=== PATIENT | female | born 2000 | race Two or more races ===

== ENCOUNTER 2020-09-24 12:30 | Emergency (ER) | payer OTHER ==
--- NOTE | 2020-09-24 13:15 | ED Physician Documentation ---
PD HPI HEAD INJURY - Stated complaint Stated Complaint: GLF/HEAD INJURY - Chief complaint Chief Complaint: Trauma Hd/Nk - History obtained from History obtained from: Patient, Family - History of Present Illness Mechanism of head injury: Fell Where head injury occurred: Home Timing - onset: How many days ago (3) Location of injury: Front Quality of pain: Pain Associated symptoms: Neck pain, Other (facial bruising and headache). No: LOC, AMS, Amnesia, Nausea / vomiting, Paresthesias, Seizures, Ear drainage, Nasal drainage Symptoms improve with: Rest Symptoms worsen with: Palpation Contributing factors: No: Anticoagulated Similar symptoms before: Diagnosis (concussion) Recently seen: Not recently seen - Additional information Additional information: Previously well 20-year-old female was helping a friend move 3 days ago when she fell down a flight of stairs. She states that she tripped over her own feet and she landed on her face. She denies any loss of consciousness associated with this she did not get nauseated or have difficulty concentrating. She does have a headache. The headache is a persistent symptom that she has had. She denies any paresthesias she does have some stiffness to her neck is able to move around quite easily without difficulty. She is able to move her eyes without pain has no visual changes does have some black and blues to both eyes and some pain across her forehead and not to her cheeks or the sides of her head. Review of Systems Constitutional: denies: Fever Eyes: denies: Loss of vision, Decreased vision, Photophobia, Discharge, Irritation Ears: denies: Ear pain Nose: denies: Rhinorrhea / runny nose, Congestion Throat: denies: Sore throat Cardiac: denies: Chest pain / pressure Respiratory: denies: Dyspnea, Cough GI: denies: Nausea, Vomiting : denies: Dysuria, Frequency PD PAST MEDICAL HISTORY - Present Medications Home Medications: Ambulatory Orders Medication Instructions Recorded Confirmed No Known Home Medications 09/24/20 09/24/20 - Allergies Allergies/Adverse Reactions: Allergies Allergy/AdvReac Type Severity Reaction Status Date / Time No Known Drug Allergies Allergy Verified 09/24/20 12:51 PD ED PE NORMAL - Vitals Vital signs reviewed: Yes (Wide pulse pressure) - General General: Alert and oriented X 3, No acute distress, Well developed/nourished - HEENT HEENT: PERRL, EOMI, Other (There is ecchymosis to the lower lids bilaterally and there is no tenderness to the cheeks or the infraorbital area or the zygomatic arch bilaterally. 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 2-12 intact, No motor deficit, No sensory deficit, Normal speech Eye Opening: Spontaneous Motor: Obeys Commands Verbal: Oriented GCS Score: 15 - Psych Psych: Normal mood, Normal affect Results - Vitals Vitals: Vital Signs - 24 hr 09/24/20 12:52 Temperature 36.6 C Heart Rate 62 Respiratory 16 Rate Blood Pressure 116/59 L O2 Saturation 100 Oxygen O2 Source Room air - Rads (name of study) CT head without Radiology: Prelim report reviewed (Impression: No acute intracranial abnormality.), EMP read indepedently, See rad report PD MEDICAL DECISION MAKING - ED course Complexity details: reviewed results, re-evaluated patient, considered differential, d/w patient ED course: 20 y/o female with facial contusion and concussion with residual headache has no evidence of ICH on CT scanning. There is no evidence of facial fracture. Departure - Departure Disposition: 01 Home, Self Care Clinical Impression: Concussion Qualifiers: Encounter type: initial encounter Loss of consciousness presence/duration: without LOC Qualified Code(s): S06.0X0A - Concussion without loss of consciousness, initial encounter Condition: Stable Instructions: ED Concussion Follow-Up: [facility] [Provider Group]
--- NOTE | 2020-09-24 14:15 | CT Report ---
PROCEDURE: HEAD WO INDICATIONS: concussion w/o loc TECHNIQUE: Noncontrast 4.5 mm thick angled axial sections acquired from the foramen magnum to the vertex. For r adiation dose reduction, the following was used: automated exposure control, adjustment of mA and/or kV according to patient size. COMPARISON: None. FINDINGS: Image quality: Excellent. CSF spaces: Basal cisterns are patent. No extra-axial fluid collections. Ventricles are normal in size and shape. Brain: No midline shift. No intracranial masses or hemorrhage. Padgett-white matter interface is norm al. Skull and face: Calvarium and visualized facial bones are intact, without suspicious lesions. Questi on of mild contusion at the left for head. Sinuses: Visualized sinuses and mastoids are clear. IMPRESSION: No acute intracranial abnormality. Reviewed by: Wild Kramer MD on 09/24/2020 1:13 PM [facility] Approved by: Wild Kramer MD on 09/24/2020 1:13 PM [facility] Station ID: [id number]
[2020-09-24 14:41] VITALS: BP 112/70
== END 2020-09-24 14:30 | disposition home or self-care (01) ==
LOC: ED 12:30
DX: S06.0X0A Concussion without loss of consciousness, initial encounter (principal); S00.10XA Contusion of unspecified eyelid and periocular area, initial encounter; W10.9XXA Fall (on) (from) unspecified stairs and steps, initial encounter; Y93.89 Activity, other specified; Y92.009 Unspecified place in unspecified non-institutional (private) residence as the place of occurrence of the external cause
CPT/HCPCS: 70450; 99284